=== PATIENT | male | born 1960 | race Caucasian/White ===

== ENCOUNTER 2020-09-10 20:09 | Emergency (ER) | payer OTHER ==
[2020-09-10 21:16] VITALS: BP 151/91; PULSE 66; RESP 18; TEMP 98.2
[2020-09-10] MEDS ORDERED: IBUPROFEN 600 MG TAB PO STA (21:46)
[2020-09-10] MEDS ORDERED: HYDROmorphone 1 MG/ML 1 ML SYRINGE IM STA (21:46)
[2020-09-10] MEDS ORDERED: ACET/COD 300 MG/30 MG STARTER PACK 6 TAB BTL PO STA (21:56)
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
[2020-09-10] MEDS ORDERED: KETOROLAC 15 MG/ML 1 ML VIAL IM STA (22:05)
== END 2020-09-10 22:18 | disposition home or self-care (01) ==
LOC: EC 20:09
DX: T23.242A Burn of second degree of multiple left fingers (nail), including thumb, initial encounter (principal); T31.0 Burns involving less than 10% of body surface; I10 Essential (primary) hypertension; Z88.0 Allergy status to penicillin; X19.XXXA Contact with other heat and hot substances, initial encounter; Y93.89 Activity, other specified; Y92.009 Unspecified place in unspecified non-institutional (private) residence as the place of occurrence of the external cause
CPT/HCPCS: 99283; 16020; 96372; J1885